=== PATIENT | male | born 1990 | race American Indian/Alaskan Native ===

== ENCOUNTER 2017-04-05 09:35 | Emergency (ER) | payer OTHER ==
[~2017-04-05] VITALS: Ht 172.7 cm; Wt 81.6 kg
[2017-04-05 09:35] VITALS: BP 146/95
== END 2017-04-05 09:56 ==
LOC: ER 09:42
DX: S00.83XA Contusion of other part of head, initial encounter (principal); Y04.2XXA Assault by strike against or bumped into by another person, initial encounter; Y93.89 Activity, other specified; Y92.89 Other specified places as the place of occurrence of the external cause; Y99.9 Unspecified external cause status
CPT/HCPCS: 99283; A4606; Z7610